=== PATIENT | female | born 2000 | race African-American/Black ===

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

== ENCOUNTER → 2019-06-11 | Outpatient (CLI) | payer OTHER ==
--- NOTE | 2019-06-11 07:34 | US ---
EXAMINATION TYPE: Transabdominal DATE OF EXAM: 06/11/2019 7:17 AM COMPARISON: NONE CLINICAL HISTORY: Z36 confirm dates. EXAM PERFORMED: Transabdominal (TA) EXAM MEASUREMENTS: GESTATIONAL AGE / DATING Physician Established: Not yet established Dates by LMP: (11 weeks/ 3 days) EDC: 12/28/2019 Dates by First Scan: No previous this is first scan Dates by Current Scan for: (13 weeks/5 days) EDC: 12/12/2019 MATERNAL ANATOMY Uterus: 13.7 x 7.2 x 9.7 cm Right Ovary: 2.7 x 1.9 x 1.6 cm Left Ovary: 2.3 x 1.7 x 1.0 cm Post CDS / Adnexa: wnl Presence of free fluid: No Presence of corpus luteal cyst: No Presence of subchorionic bleed: No GESTATION / SURVEY CRL: 7.6 cm (13 weeks/5 days) Heart Rate: 163 bpm Rhythm: Normal IUP: Viable IUP Date of LMP: 03/23/2019 Beta HcG (if available): Not available at this time Viable IUP with an HAMILTON 12/12/2019 IMPRESSION: Viable IUP 13 weeks 5 days with an HAMILTON 12/12/2019
== END | disposition home or self-care (01) ==
LOC: RADUSWWP 06:59
PROVIDERS: ATTEND Obstetrics & Gynecology
DX: Z34.01 Encounter for supervision of normal first pregnancy, first trimester (principal); Z3A.13 13 weeks gestation of pregnancy
CPT/HCPCS: 76801

== ENCOUNTER → 2019-08-15 | Outpatient (CLI) | payer OTHER ==
[2019-08-15 15:35] LABS: HCT 33.7 % (34.0-46.0); HGB 11.4 gm/dL (11.4-16.0); MCH 33.5 pg (25.0-35.0); MCHC 33.8 g/dL (31.0-37.0); Mean Platelet Volume 9.2; Platelet Count 175 k/uL (150-450); RBC 3.41 m/uL (3.80-5.40); RDW 12.6 % (11.5-15.5); WBC 7.3 k/uL (4.0-11.0)
== END | disposition home or self-care (01) ==
LOC: LABWHC1 14:07
PROVIDERS: ATTEND Obstetrics & Gynecology
DX: Z34.02 Encounter for supervision of normal first pregnancy, second trimester (principal)
CPT/HCPCS: 36415; 82950; 85027

== ENCOUNTER 2019-12-12 06:01 | Inpatient (IN) | payer OTHER ==
[2019-12-12] MEDS ORDERED: TERBUTALINE 1 MG/ML VIAL SQ PRN (06:08)
[2019-12-12] MEDS ORDERED: LIDOCAINE 0.5% (PF) 5 MG/ML (50 ML SDV) SQ PRN (06:08)
[2019-12-12] MEDS ORDERED: CARBOPROST TROMETHAMINE 250 MCG/ML 1 ML AMP IM PRN (06:08)
[2019-12-12] MEDS ORDERED: METHYLERGONOVINE 0.2 MG/ML 1 ML AMP IM PRN (06:08)
[2019-12-12] MEDS ORDERED: OXYTOCIN 10 UNIT/ML 1 ML VIAL IM PRN (06:08)
[2019-12-12] MEDS ORDERED: LACTATED RINGERS 1,000 ML IV SCH (06:15)
[2019-12-12] MEDS ORDERED: OXYTOCIN 30 UNITS/500 ML NS 30 UNIT in SALINE 1 500ML.BAG IV SCH (06:15)
[2019-12-12] MEDS: LACTATED RINGERS 1,000 ML IV SCH ×2 (06:17→22:38)
[2019-12-12 06:35] LABS: Basophils # (A) 0.1 k/uL (0-0.2); Basophils % (A) 1 %; Eosinophils # (A) 0.1 k/uL (0-0.7); Eosinophils % (A) 1 %; HGB 13.1 gm/dL (11.4-16.0); Lymphocytes # (A) 2.1 k/uL (1.0-4.8); Lymphocytes % (A) 23 %; MCHC 32.8 g/dL (31.0-37.0); MCV 100.6 fL (80.0-100.0); Mean Platelet Volume 10.9; Monocytes # (A) 0.6 k/uL (0-1.0); Monocytes % (A) 6 %; Neutrophils # (A) 6.2 k/uL (1.3-7.7); Neutrophils % (A) 67 %; Platelet Count 148 k/uL (150-450); RBC 3.97 m/uL (3.80-5.40); RDW 12.2 % (11.5-15.5); WBC 9.3 k/uL (4.0-11.0)
[2019-12-12 07:08] LABS: Large Platelets Present
[2019-12-12] MEDS ORDERED: BUTORPHANOL 1 MG/ML 1 ML VIAL IV PRN (08:50)
[2019-12-12] MEDS ORDERED: diphenhydrAMINE 50 MG CAP PO PRN (15:44)
[2019-12-12] MEDS ORDERED: diphenhydrAMINE 50 MG/ML 1 ML VIAL IVP PRN ×2 (15:44)
[2019-12-12] MEDS ORDERED: HYDROCORTISONE 2.5% RECTAL CREAM 30 GM TUBE RECTAL PRN (15:44)
[2019-12-12] MEDS ORDERED: ZOLPIDEM 5 MG TAB PO PRN (15:44)
[2019-12-12] MEDS ORDERED: SIMETHICONE 80 MG CHEWABLE PO PRN (15:44)
[2019-12-12] MEDS ORDERED: diphenhydrAMINE 25 MG CAP PO PRN (15:44)
[2019-12-12] MEDS ORDERED: ACETAMINOPHEN TAB 325 MG TAB PO PRN (15:44)
[2019-12-12] MEDS ORDERED: WITCH HAZEL 1 EACH MED..PAD TOPICAL PRN (15:44)
[2019-12-12] MEDS ORDERED: LANOLIN CREAM 5 GM TUBE TOPICAL PRN (15:44)
[2019-12-12] MEDS ORDERED: BENZOCAINE/MENTHOL SPRAY 1 GM/SPRAY AEROSOL TOPICAL PRN (15:44)
[2019-12-12] MEDS ORDERED: MEASLES-MUMPS-RUBELLA VACC/PF 12,500 UNIT/0.5 ML VIAL SQ ONE (15:44)
[2019-12-12] MEDS ORDERED: OXYTOCIN 20 UNITS/1000 ML NS 1,000 ML IV SCH (15:45)
[2019-12-12] MEDS: IBUPROFEN 600 MG TAB PO PRN ×2 (16:03→23:05)
--- NOTE | 2019-12-12 18:11 | P.HPOB ---
History of Present Illness H&P Date: 12/12/19 Chief Complaint: Induction of Labor 19-year-old presents at 40 weeks for induction of labor. Her cervix is 1- 2 cm dilated, 70% effaced, and -3 station. She is sonja irregularly. heart tones 140 with moderate variability and reactive. Review of Systems All systems: negative Constitutional: Denies chills, Denies fever Eyes: denies blurred vision, denies pain Ears, nose, mouth and throat: Denies headache, Denies sore throat Cardiovascular: Denies chest pain, Denies shortness of breath Respiratory: Denies cough Gastrointestinal: Denies abdominal pain, Denies diarrhea, Denies nausea, Denies vomiting Genitourinary: Denies dysuria, Denies hematuria Musculoskeletal: Denies myalgias Integumentary: Denies pruritus, Denies rash Neurological: Denies numbness, Denies weakness Psychiatric: Denies anxiety, Denies depression Endocrine: Denies fatigue, Denies weight change Past Medical History Past Medical History: No Reported History Additional Past Medical History / Comment(s): Obstetric history: This is her first . She's had care with me since 11 weeks gestation. Blood type is O+, and because negative, rubella nonimmune, RPR nonreactive, hep B is B-, HIV nonreactive. Normal 1 hour glucose tolerance test. History of Any Multi-Drug Resistant Organisms: None Reported Past Surgical History: No Surgical Hx Reported Past Anesthesia/Blood Transfusion Reactions: Unable to Obtain Past Psychological History: No Psychological Hx Reported Smoking Status: Never smoker Past Alcohol Use History: None Reported Past Drug Use History: None Reported - Past Family History Mother Family Medical History: No Reported History Medications and Allergies Home Medications Medication Instructions Recorded Confirmed Type No Known Home Medications 12/12/19 12/12/19 History Allergies Allergy/AdvReac Type Severity Reaction Status Date / Time No Known Allergies Allergy Verified 12/12/19 06:07 Exam Osteopathic Statement: *. No significant issues noted on an osteopathic structural exam other than those noted in the History and Physical/Consult. Vital Signs Temp Pulse Resp BP Pulse Ox 12/12/19 16:59 98.3 F 102 H 16 121/71 12/12/19 16:58 98.2 F 102 H 16 121/72 12/12/19 16:21 97.7 F 118 H 16 112/68 12/12/19 16:02 99.6 F 107 H 16 117/67 12/12/19 16:00 100.1 F H 101 H 16 119/68 12/12/19 15:47 100 16 118/68 12/12/19 15:32 96 16 115/70 12/12/19 15:17 98.1 F 115 H 16 112/66 12/12/19 15:02 125 H 16 112/71 12/12/19 06:14 97.3 F L 101 H 18 123/75 99 Intake and Output 12/12/19 12/12/19 12/12/19 06:59 14:59 22:59 Intake Total 1000 Balance 1000 Intake: IV 1000 Lactated Ringers 1,000 ml 1000 @ 125 mls/hr IV .Q8H [facility] Rx#:[id number] Other: Weight 89.811 kg Heart: Regular rate and rhythm Lungs: Clear to auscultation bilaterally Abdomen: Soft, nontender Extremities: Negative Homans sign Results Result Diagrams: 12/12/19 06:20 Abnormal Lab Results - Last 24 Hours (Table) 12/12/19 Range/Units 06:20 MCV 100.6 H (80.0-100.0) fL Plt Count 148 L (150-450) k/uL Assessment and Plan (1) Normal labor Current Visit: Yes Status: Acute Code(s): O80 - ENCOUNTER FOR FULL-TERM UNCOMPLICATED DELIVERY; Z37.9 - OUTCOME OF DELIVERY, UNSPECIFIED SNOMED Code(s): 55667219 Plan: 1. Induction of labor with amniotomy and Pitocin 2. Anticipate normal vaginal delivery
--- NOTE | 2019-12-12 18:13 | P.PROBDLV ---
Vaginal Delivery Note - . Vaginal Delivery Note: 19-year-old presents at 40 weeks for induction of labor. Her cervix is 1- 2 cm dilated, 70% effaced, and -3 station. She is sonja irregularly. heart tones 140 with moderate variability and reactive. Pitocin was started. Amniotomy performed at 8:09 AM and clear fluid noted. When she was uncomfortable she did get a few doses of Stadol. Her cervix was completely dilated at 1434. She pushed, delivered a viable female infant over intact perineum at 1452. Head delivered OA, anterior shoulder delivered gentle downward guidance followed by posterior shoulder and rest of body. Nose and mouth bulb suctioned, with an to cut, placed on mother's abdomen. Apgars 9, 9, weight 7 lbs. 10 oz. Vagina, cervix, and perineum were inspected. Second-degree Midline laceration was repaired with 2-0 Vicryl. Estimated blood loss 200 mL. Mother and baby in stable condition.
[2019-12-12] MEDS: SENNOSIDES-DOCUSATE SODIUM 1 EACH TAB PO SCH (23:05)
[2019-12-13 06:54] LABS: Basophils % (A) 0 %; Eosinophils # (A) 0.1 k/uL (0-0.7); Eosinophils % (A) 0 %; HCT 34.9 % (34.0-46.0); Lymphocytes # (A) 1.7 k/uL (1.0-4.8); Lymphocytes % (A) 14 %; MCHC 34.3 g/dL (31.0-37.0); Macrocytosis Slight; Mean Platelet Volume 10.7; Monocytes # (A) 0.9 k/uL (0-1.0); Monocytes % (A) 7 %; Neutrophils # (A) 9.6 k/uL (1.3-7.7); Neutrophils % (A) 77 %; Platelet Count 168 k/uL (150-450); RBC 3.42 m/uL (3.80-5.40); RDW 12.4 % (11.5-15.5); WBC 12.6 k/uL (4.0-11.0)
[2019-12-13] MEDS: SENNOSIDES-DOCUSATE SODIUM 1 EACH TAB PO SCH (09:01)
[2019-12-13] MEDS ORDERED: DIPH,PERTUS(ACELL)TETVAC-LF 0.5 ML VIAL IM ONE (10:08)
--- NOTE | 2019-12-13 11:29 | P.DS ---
Providers Date of admission: 12/12/19 06:01 Expected date of discharge: 12/13/19 Attending physician: Jonelle Agee Primary care physician: Stated None - Discharge Diagnosis(es) (1) Normal labor Current Visit: Yes Status: Resolved (2) Normal vaginal delivery Current Visit: Yes Status: Acute Hospital Course: Patient presented for induction of labor. She underwent normal vaginal delivery. Her course was uncomplicated. She'll be discharged home day #1 in stable condition to follow-up with me in 6 weeks. Plan - Discharge Summary New Discharge Prescriptions: No Action No Known Home Medications Discharge Medication List No Known Home Medications 12/12/19 [History]
[2019-12-13 16:02] VITALS: BP 103/63; PULSE 83; RESP 18; TEMP 97.5
== END 2019-12-13 16:29 | disposition home or self-care (01) | DRG 807 ==
LOC: 4FBP 06:01
PROVIDERS: ADMIT Obstetrics & Gynecology; ATTEND Obstetrics & Gynecology
PROC: 10907ZC Drainage of Amniotic Fluid, Therapeutic from Products of Conception, Via Natural or Artificial Opening (ICD-10-PCS; principal; 2019-12-12)
PROC: 0KQM0ZZ Repair Perineum Muscle, Open Approach (ICD-10-PCS; principal; 2019-12-12)
PROC: 10E0XZZ Delivery of Products of Conception, External Approach (ICD-10-PCS; principal; 2019-12-12)
PROC: 3E033VJ Introduction of Other Hormone into Peripheral Vein, Percutaneous Approach (ICD-10-PCS; principal; 2019-12-12)
DX: O70.1 Second degree perineal laceration during delivery (principal); Z37.0 Single live birth; Z3A.40 40 weeks gestation of pregnancy
CPT/HCPCS: 85025; 86850; 86900; 86901; 90707; 90715

== ENCOUNTER 2019-12-17 12:54 | Emergency (ER) | payer OTHER ==
[2019-12-17 13:28] VITALS: RESP 20; TEMP 98.3
--- NOTE | 2019-12-17 14:30 | ED ---
General Adult HPI - General Chief complaint: Extremity Problem,Nontraumatic Stated complaint: Foot swollen/had baby 12/12/19 Time Seen by Provider: 12/17/19 13:25 Source: patient, RN notes reviewed, old records reviewed Mode of arrival: ambulatory Limitations: no limitations - History of Present Illness Initial comments: This a 19-year-old female presents emergency Department 5 days post . Patient states she had a vaginal delivery without come patient. Patient states since then she's had some swelling to both of her legs but more so to the right and now the left leg is gone down so is much more obvious that the right leg is swollen. Patient denies any calf tenderness. Patient denies any difficulty breathing shortness of breath. Patient denies any previous problems with swollen eyes. Patient denies any injury. Patient denies any pain in the leg. She just can't tell when she walks on it that is swollen. Patient has no other complaints at this time. - Related Data Previous Rx's Medication Instructions Recorded Ibuprofen [Motrin] 600 mg PO Q6HR PRN #30 tab 12/13/19 Allergies Allergy/AdvReac Type Severity Reaction Status Date / Time No Known Allergies Allergy Verified 12/17/19 13:28 Review of Systems ROS Statement: Those systems with pertinent positive or pertinent negative responses have been documented in the HPI. ROS Other: All systems not noted in ROS Statement are negative. Past Medical History Past Medical History: No Reported History Additional Past Medical History / Comment(s): Obstetric history: This is her first . She's had care with me since 11 weeks gestation. Blood type is O+, and because negative, rubella nonimmune, RPR nonreactive, hep B is B-, HIV nonreactive. Normal 1 hour glucose tolerance test. History of Any Multi-Drug Resistant Organisms: None Reported Past Surgical History: No Surgical Hx Reported Past Anesthesia/Blood Transfusion Reactions: Unable to Obtain Past Psychological History: No Psychological Hx Reported Smoking Status: Never smoker Past Alcohol Use History: None Reported Past Drug Use History: None Reported - Past Family History Mother Family Medical History: No Reported History General Exam - General Exam Comments Initial Comments: GENERAL: Patient is well-developed and well-nourished. Patient is nontoxic and well- hydrated and is in no acute distress. ENT: Neck is soft and supple. No significant lymphadenopathy is noted. Oropharynx is clear. Moist mucous membranes. Neck has full range of motion without eliciting any pain. EYES: The sclera were anicteric and conjunctiva were pink and moist. Extraocular movements were intact and pupils were equal round and reactive to light. Eyelids were unremarkable. PULMONARY: Unlabored respirations. Good breath sounds bilaterally. No audible rales rhonchi or wheezing was noted. CARDIOVASCULAR: There is a regular rate and rhythm without any murmurs gallops or rubs. ABDOMEN: Soft and nontender with normal bowel sounds. SKIN: Skin is clear with no lesions or rashes and otherwise unremarkable. NEUROLOGIC: Patient is alert and oriented x3. Cranial nerves II through XII are grossly intact. Motor and sensory are also intact. Normal speech, volume and content. Symmetrical smile. MUSCULOSKELETAL: Normal extremities with adequate strength and full range of motion. Right leg is swollen. There is no calf tenderness however LYMPHATICS: No significant lymphadenopathy is noted PSYCHIATRIC: Normal psychiatric evaluation. Limitations: no limitations Course Vital Signs 12/17/19 12/17/19 13:24 13:28 Temperature 98.3 F Pulse Rate 68 Respiratory 20 20 Rate Blood Pressure 112/69 O2 Sat by Pulse 100 Oximetry Medical Decision Making - Medical Decision Making Ultrasound showed no DVT. I spoke with Dr. Agee and she agreed the patient could follow-up as an outpatient. - Lab Data Result diagrams: 12/17/19 14:32 12/17/19 14:32 Lab Results 12/17/19 12/17/19 12/17/19 Range/Units 14:32 14:32 14:51 WBC 5.8 (4.0-11.0) k/uL RBC 3.68 L (3.80-5.40) m/uL Hgb 12.4 (11.4-16.0) gm/dL Hct 37.4 (34.0-46.0) % MCV 101.5 H (80.0-100.0) fL MCH 33.8 (25.0-35.0) pg MCHC 33.3 (31.0-37.0) g/dL RDW 12.3 (11.5-15.5) % Plt Count 180 (150-450) k/uL Neutrophils % 64 % Lymphocytes % 26 % Monocytes % 5 % Eosinophils % 3 % Basophils % 0 % Neutrophils # 3.8 (1.3-7.7) k/uL Lymphocytes # 1.5 (1.0-4.8) k/uL Monocytes # 0.3 (0-1.0) k/uL Eosinophils # 0.2 (0-0.7) k/uL Basophils # 0.0 (0-0.2) k/uL Sodium 138 (137-145) mmol/L Potassium 4.1 (3.5-5.1) mmol/L Chloride 107 (98-107) mmol/L Carbon Dioxide 25 (22-30) mmol/L Anion Gap 6 mmol/L BUN 6 L (7-17) mg/dL Creatinine 0.56 (0.52-1.04) mg/dL Est GFR (CKD-EPI)AfAm >90 (>60 ml/min/1.73 sqM) Est GFR (CKD-EPI)NonAf >90 (>60 ml/min/1.73 sqM) Glucose 68 L (74-99) mg/dL Calcium 8.9 (8.4-10.2) mg/dL Total Bilirubin 0.5 (0.2-1.3) mg/dL AST 34 (14-36) U/L ALT 20 (4-34) U/L Alkaline Phosphatase 125 (38-126) U/L Total Protein 6.1 L (6.3-8.2) g/dL Albumin 3.4 L (3.5-5.0) g/dL Urine Color Light Yellow Urine Appearance Clear (Clear) Urine pH 8.0 (5.0-8.0) Ur Specific [place] 1.009 (1.001-1.035) Urine Protein Negative (Negative) Urine Glucose (UA) Negative (Negative) Urine Ketones Negative (Negative) Urine Blood Negative (Negative) Urine Nitrite Negative (Negative) Urine Bilirubin Negative (Negative) Urine Urobilinogen <2.0 (<2.0) mg/dL Ur Leukocyte Esterase Large H (Negative) Urine RBC 10 H (0-5) /hpf Urine WBC 20 H (0-5) /hpf Ur Squamous Epith Cells 1 (0-4) /hpf Urine Bacteria Rare H (None) /hpf Disposition Clinical Impression: Swollen leg Disposition: HOME SELF-CARE Condition: Good Instructions (If sedation given, give patient instructions): Leg Edema (ED) Is patient prescribed a controlled substance at d/c from ED?: No Referrals: Graham Ramirez DO [Primary Care Provider] - 1-2 days Time of Disposition: 15:50
[2019-12-17 14:55] LABS: Basophils % (A) 0 %; Eosinophils # (A) 0.2 k/uL (0-0.7); Eosinophils % (A) 3 %; HCT 37.4 % (34.0-46.0); HGB 12.4 gm/dL (11.4-16.0); Lymphocytes # (A) 1.5 k/uL (1.0-4.8); Lymphocytes % (A) 26 %; MCH 33.8 pg (25.0-35.0); MCHC 33.3 g/dL (31.0-37.0); MCV 101.5 fL (80.0-100.0); Mean Platelet Volume 9.2; Monocytes # (A) 0.3 k/uL (0-1.0); Monocytes % (A) 5 %; Neutrophils # (A) 3.8 k/uL (1.3-7.7); Neutrophils % (A) 64 %; Platelet Count 180 k/uL (150-450); RBC 3.68 m/uL (3.80-5.40); RDW 12.3 % (11.5-15.5); WBC 5.8 k/uL (4.0-11.0)
[2019-12-17 14:56] LABS: ALT 20 U/L (4-34); AST 34 U/L (14-36); African American GFR (CKD) >90 (>60 ml/min/1.73 sqM); Albumin 3.4 g/dL (3.5-5.0); Alkaline Phosphatase 125 U/L (38-126); Anion Gap 6 mmol/L; Blood Urea Nitrogen 6 mg/dL (7-17); Calcium 8.9 mg/dL (8.4-10.2); Carbon Dioxide 25 mmol/L (22-30); Chloride 107 mmol/L (98-107); Glucose 68 mg/dL (74-99); Non-African American GFR(CKD) >90 (>60 ml/min/1.73 sqM); Potassium 4.1 mmol/L (3.5-5.1); Sodium 138 mmol/L (137-145); Total Bilirubin 0.5 mg/dL (0.2-1.3); Total Protein 6.1 g/dL (6.3-8.2)
[2019-12-17 15:02] LABS: Appearance,Urine Clear (Clear); Bacteria,Urine Rare /hpf; Bilirubin,Urine Negative (Negative); Blood,Urine Negative (Negative); Color,Urine Light Yellow; Glucose,Urine (UA) Negative (Negative); Ketones,Urine Negative (Negative); Leukocyte Esterase,Urine Large (Negative); Nitrite,Urine Negative (Negative); Protein,Urine Negative (Negative); RBC,Urine 10 /hpf (0-5); Specific Gravity,Urine 1.009 (1.001-1.035); Squamous Epithelial Cell,Urine 1 /hpf (0-4); Urobilinogen,Urine <2.0 mg/dL (<2.0); WBC,Urine 20 /hpf (0-5)
--- NOTE | 2019-12-17 15:17 | US ---
EXAMINATION TYPE: US venous doppler duplex LE RT DATE OF EXAM: 12/17/2019 3:11 PM COMPARISON: NONE CLINICAL HISTORY: Swollen leg . swelling. 5 days post . SIDE PERFORMED: Right TECHNIQUE: The lower extremity deep venous system is examined utilizing real time linear array sonog bre with graded compression, doppler sonography and color-flow sonography. VESSELS IMAGED: External Iliac Vein (EIV) Common Femoral Vein Deep Femoral Vein Greater Saphenous Vein * Femoral Vein Popliteal Vein Small Saphenous Vein * Proximal Calf Veins (* superficial vessels) Right Leg: Negative for DVT IMPRESSION: No evidence of DVT.
[2019-12-17 16:07] VITALS: PULSE 82
[2019-12-17 16:09] VITALS: BP 110/78
== END 2019-12-17 16:17 | disposition home or self-care (01) ==
LOC: EC 12:54
DX: O90.89 Other complications of the puerperium, not elsewhere classified (principal); M79.89 Other specified soft tissue disorders
CPT/HCPCS: 36415; 80053; 81001; 85025; 87086; 99284

== ENCOUNTER 2021-06-29 15:08 | Emergency (ER) | payer OTHER ==
[2021-06-29 15:36] VITALS: BP 126/82; PULSE 86; RESP 16; TEMP 98.3
--- NOTE | 2021-06-29 16:42 | ED ---
Eye Problem HPI - General Chief complaint: Eye Problems Stated complaint: Poss [place] [facility] Time Seen by Provider: 06/29/21 16:03 Source: patient, RN notes reviewed Mode of arrival: ambulatory Limitations: no limitations - History of Present Illness Initial comments: Patient is a 20-year-old female presents to emergency department with right eye redness and irritation. She denied scratching her eye or any foreign body type sensation. She noted that her eye just feels irritated dry. She was otherwise well-appearing well-hydrated 20-year-old female in no apparent distress. She denied any change in vision blurry vision. Patient denied any chest pain first breath headache nausea vomiting diarrhea constipation fever fatigue chills. - Related Data Home Medications Medication Instructions Recorded Confirmed Cetirizine HCl [Zyrtec] 10 mg PO DAILY 12/17/19 12/17/19 Previous Rx's Medication Instructions Recorded Ibuprofen [Motrin] 600 mg PO Q6HR PRN #30 tab 12/13/19 Azithromycin [Azasite] 1 drop BOTH EYES BID #1 bottle 06/29/21 Allergies Allergy/AdvReac Type Severity Reaction Status Date / Time No Known Allergies Allergy Verified 12/17/19 15:58 Review of Systems ROS Statement: Those systems with pertinent positive or pertinent negative responses have been documented in the HPI. ROS Other: All systems not noted in ROS Statement are negative. Past Medical History Past Medical History: No Reported History Additional Past Medical History / Comment(s): Obstetric history: This is her first . She's had care with me since 11 weeks gestation. Blood type is O+, and because negative, rubella nonimmune, RPR nonreactive, hep B is B-, HIV nonreactive. Normal 1 hour glucose tolerance test. History of Any Multi-Drug Resistant Organisms: None Reported Past Surgical History: No Surgical Hx Reported Past Anesthesia/Blood Transfusion Reactions: Unable to Obtain Past Psychological History: No Psychological Hx Reported Smoking Status: Never smoker Past Alcohol Use History: None Reported Past Drug Use History: None Reported - Past Family History Mother Family Medical History: No Reported History General Exam Limitations: no limitations General appearance: alert, in no apparent distress Head exam: Present: atraumatic, normocephalic, normal inspection Eye exam: Present: normal appearance, PERRL, EOMI. Absent: scleral icterus, conjunctival injection, periorbital swelling Expanded Sclera/Conjunctival: Normal Inspection: Left, Injection: Right Neck exam: Present: normal inspection Respiratory exam: Present: normal lung sounds bilaterally. Absent: respiratory distress, wheezes, rales, rhonchi, stridor Cardiovascular Exam: Present: regular rate, normal rhythm, normal heart sounds. Absent: systolic murmur, diastolic murmur, rubs, gallop, clicks Extremities exam: Present: normal inspection, full ROM, normal capillary refill. Absent: tenderness, pedal edema, joint swelling, calf tenderness Neurological exam: Present: alert, oriented X3 Psychiatric exam: Present: normal affect, normal mood Skin exam: Present: warm, dry, intact, normal color. Absent: rash Course Vital Signs 06/29/21 15:34 Temperature 98.3 F Pulse Rate 86 Respiratory 16 Rate Blood Pressure 126/82 O2 Sat by Pulse 100 Oximetry Medical Decision Making - Medical Decision Making 20-year-old female with right eye irritation, no foreign body sensation no trauma. Given clinical signs and symptoms patient most likely has conjunctivitis. Case discussed with Dr. Dgigs him a patient can discharge home with follow-up to primary care. Disposition Clinical Impression: Viral conjunctivitis Disposition: HOME SELF-CARE Condition: Stable Instructions (If sedation given, give patient instructions): Conjunctivitis (ED) Additional Instructions: Please return to the Emergency Department if symptoms worsen or any other concerns. Follow-up primary care next oral days. Use antibiotic drops as prescribed. Keep eye clean. Avoid in her eyes. Is patient prescribed a controlled substance at d/c from ED?: No Referrals: Graham Ramirez DO [Primary Care Provider] - 1-2 days Time of Disposition: 16:42
== END 2021-06-29 16:56 | disposition home or self-care (01) ==
LOC: EC 15:08
DX: B30.9 Viral conjunctivitis, unspecified (principal)
CPT/HCPCS: 99283